=== PATIENT | male | born 1990 | race African-American/Black ===

== ENCOUNTER 2018-11-11 19:21 | Emergency (ER) | payer OTHER ==
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
[2018-11-11 19:45] VITALS: BP 129/74; PULSE 66; TEMP 98.4; BMI 24.4
--- NOTE | 2018-11-11 20:45 | PDOC ---
Attending Attestation - Resident Resident Name: Mauricio Lares - ED Attending Attestation I have performed the following: I have examined & evaluated the patient, The case was reviewed & discussed with the resident, I agree w/resident's findings & plan - HPI HPI: 11/11/18 21:53 Pt comes with rectal bleed noted prior to arrival; Pt saw blood on toilet paper when he wiped. He has no abd pain at this time. He saw no blood in the bowl and he has no blood on the stool itself. He has no hx of diarrhea or constipation. He has poor diet and he is a smoker. He was advised to eat more fruit and veggies. - Physicial Exam PE: 11/11/18 21:55 Agree with resident exam. Pt has no external hemorrhoids that are noted. Pt may have internal hemorrhoids. Good rectal tone. Pt has no abd pain. HR normal Stool for guaiac is brown; no red tinge. Rest of exam normal. - Medical Decision Making 11/11/18 21:56 Occult blood test for stool shows no bleeding. Pt has normal Hb/HCT Pt will follow with his PMD or with GI as needed. No further testing at this time.
--- NOTE | 2018-11-11 21:24 | PDOC ---
History of Present Illness - General Chief Complaint: Rectal Bleed Stated Complaint: RECTAL BLEEDING Time Seen by Provider: 11/11/18 19:32 - History of Present Illness Initial Comments: 11/11/18 21:51 The patient is a 28 year old male with no significant PMH who presents for evaluation of rectal bleeding. The patient reports noting bright red blood with wiping today prompting his presentation to the ED for further evaluation. he denies similar symptoms in the past and otherwise denies fevers, chills, SOB , chest pain, nausea, vomiting, abdominal pain, or changes with urination or bowel movements. Past History - Past Medical History Allergies/Adverse Reactions: Allergies Allergy/AdvReac Type Severity Reaction Status Date / Time No Known Allergies Allergy Verified 11/11/18 19:37 COPD: No - Suicide/Smoking/Psychosocial Hx Smoking Status: No Smoking History: Current every day smoker Have you smoked in the past 12 months: Yes Number of Cigarettes Smoked Daily: 10 Information on smoking cessation initiated: No Hx Alcohol Use: Yes Drug/Substance Use Hx: Yes Review of Systems - Review of Systems Comments:: 11/11/18 21:53 Constitutional: No fevers, chills, fatigue, malaise HEENT: No Rhinorrhea, nasal congestion, visual changes Cardiovascular: No chest pain, syncope, palpitations, lightheadedness Respiratory: No Cough, SOB, Hemoptysis, Gastrointestinal: BRBPR. No Abdominal pain, Nausea, Vomiting, Constipation, Diarrhea, Melena Genitourinary: No Dysuria, Frequency, Urgency, Hesitancy, Hematuria, Flank pain Musculoskeletal: No Myalgia, arthralgia Skin: No rashes, itching, bruising, pallor Neurologic: No Headache, Dizziness, Numbness, Weakness, or Tingling Psychiatric: No Hallucinations. No SI or HI *Physical Exam - Vital Signs Last Vital Signs Temp Pulse Resp BP Pulse Ox 98.4 F 66 18 129/74 100 11/11/18 19:34 11/11/18 19:34 11/11/18 19:34 11/11/18 19:34 11/11/18 19:34 - Physical Exam Comments: 11/11/18 21:53 General Appearance: Nourished. No Apparent Distress HEENT: EOMI, EMILY. No Pharyngeal Erythema, Tonsillar Exudate, Tonsillar Erythema Neck: No Cervical Lymphadenopathy Respiratory/Chest: Lungs Clear, Normal Breath Sounds. No Crackles, Rales, Rhonchi, Wheezing Cardiovascular: Regular Rhythm, Regular Rate. No Murmur, Gallops, Rubs Gastrointestinal/Abdominal: Normal Bowel Sounds, Soft. No Guarding, Rebound, Tenderness Rectal Exam: Normal External exam. Musculoskeletal: No CVA Tenderness Extremity: Normal Capillary Refill Integumentary: Normal Color, Dry, Warm Neurologic: Fully Oriented, Alert, Normal Mood/Affect, Normal Response, ED Treatment Course - LABORATORY CBC & Chemistry Diagram: 11/11/18 21:20 11/11/18 21:20 Medical Decision Making - Medical Decision Making 11/11/18 21:54 The patient is a 28 year old male with no significant PMH who presents for evaluation of rectal bleeding. Given the patient's history and physical exam, it is likely the patient's symptoms are due to an internal hemorrhoid. However , we obtained a cbc, cmp, stool occult blood which were unremarkable. We are comfortable discharging the patient home in stable condition. Patient and family made aware of impression and plan, return precautions discussed including but not limited to worsening pain or symptoms, fevers, or signs of infection, chest pain, respiratory distress, inability to tolerate oral intake, dehydration, syncope, or neurologic changes. The patient is to follow up with PMD and specialist as recommended within 1 week, follow up information provided and the patient will call for an appointment. The patient is to take medications as instructed for duration of time and continue with supportive care , avoid triggers and precipitants. Patient is safe for outpatient follow-up. *DC/Admit/Observation/Transfer Diagnosis at time of Disposition: Rectal bleeding - Discharge Dispostion Disposition: HOME Condition at time of disposition: Stable Decision to Admit order: No - Referrals Referrals: Valentin Coley MD [Staff Physician] - - Patient Instructions Printed Discharge Instructions: DI for Rectal Bleeding Additional Instructions: 1) Please follow-up with your primary care doctor in the next 2-3 days. Please call tomorrow to schedule a follow up appointment. If you cannot follow up with your doctor within 1 week please return to the Emergency Department for any urgent issues. 2) If you have any worsening of symptoms or any other concerns, please return to the ER immediately. Return if worsening symptoms including fevers, headache, vomiting, visual or hearing disturbances, abdominal pain, chest pain, shortness of breath, syncope, dehydration, inability to take things by mouth/vomiting, altered mental status, or worsening concerning symptoms. 3) Please continue taking your home medications as directed. Side effects may include upset stomach, abdominal pain, vomiting, or diarrhea. Do not drink alcohol with your medications. - Post Discharge Activity
[2018-11-11 21:34] LABS: BASO % 0.7 % (0-2.0); EOS % 0.4 % (0-4.5); HEMATOCRIT 43.3 % (35.4-49); HEMOGLOBIN 13.5 GM/dL (11.7-16.9); LYMPH % 21.1 % (8-40); MCH 24.1 pg (25.7-33.7); MCHC 31.2 g/dl (32.0-35.9); MEAN CELL VOLUME 77.1 fl (80-96); MONO % 6.4 % (3.8-10.2); NEUT % 71.4 % (42.8-82.8); PLATELET COUNT 229 K/MM3 (134-434); RBC 5.62 M/mm3 (4.00-5.60); RDW 13.6 % (11.9-15.9); WHITE BLOOD COUNT 9.3 K/mm3 (4.0-10.0)
[2018-11-11 22:05] LABS: ALBUMIN 3.5 g/dl (3.4-5.0); BILIRUBIN,TOTAL 0.7 mg/dL (0.2-1); BLOOD UREA NITROGEN 10.4 mg/dL (7-18); CALCIUM 9.4 mg/dL (8.5-10.1); CREATININE 1.2 mg/dL (0.55-1.3); POTASSIUM 3.8 mmol/L (3.5-5.1); TOT PROT 6.9 g/dl (6.4-8.2)
== END 2018-11-11 22:00 | disposition home or self-care (01) ==
LOC: JER 19:21 → JERFT 19:21 → JER 22:00
DX: K62.5 Hemorrhage of anus and rectum (principal); F17.210 Nicotine dependence, cigarettes, uncomplicated
CPT/HCPCS: 36415; 80053; 82272; 85025; 99282-25

== ENCOUNTER 2020-04-12 14:19 | Emergency (ER) | payer OTHER ==
[2020-04-12 14:25] VITALS: BP 133/79; PULSE 72; TEMP 97.9; BMI 23.7
[2020-04-12] MEDS ORDERED: SODIUM CHLORIDE 0.9% 500 ML INFUS.BAG IV ONE (14:50)
[2020-04-12] MEDS ORDERED: AZITHROMYCIN 500 MG TABLET PO ONE (14:51)
[2020-04-12] MEDS ORDERED: AZITHROMYCIN 250 MG TABLET ONE (15:09)
[2020-04-12 15:38] LABS: BASO % 0.2 % (0-2.0); EOS % 0.2 % (0-4.5); HEMATOCRIT 46.3 % (35.4-49); HEMOGLOBIN 14.7 GM/dL (11.7-16.9); LYMPH % 20.9 % (8-40); MCH 24.6 pg (25.7-33.7); MCHC 31.7 g/dl (32.0-35.9); MEAN CELL VOLUME 77.6 fl (80-96); MEAN PLT VOLUME 9.3 fl (7.5-11.1); MONO % 7.2 % (3.8-10.2); NEUT % 71.5 % (42.8-82.8); PLATELET COUNT 210 K/MM3 (134-434); RBC 5.96 M/mm3 (4.00-5.60); RDW 14.4 % (11.9-15.9); WHITE BLOOD COUNT 7.6 K/mm3 (4.0-10.0)
[2020-04-12 15:41] LABS: URINE APPEARANCE CLEAR; URINE BILIRUBIN NEGATIVE (NEGATIVE); URINE COLOR YELLOW; URINE GLUCOSE (UA) NEGATIVE (NEGATIVE); URINE KETONE NEGATIVE (NEGATIVE); URINE LEUK ESTERASE NEGATIVE (NEGATIVE); URINE NITRITE NEGATIVE (NEGATIVE); URINE PROTEIN NEGATIVE (NEGATIVE); URINE UROBILINOGEN 0.2 mg/dL (0.2-1.0)
[2020-04-12 15:53] LABS: POTASSIUM 4.2 mmol/L (3.5-5.1)
[2020-04-12 15:56] LABS: CALCIUM 9.4 mg/dL (8.5-10.1)
[2020-04-12 15:57] LABS: ALBUMIN 3.8 g/dl (3.4-5.0); BLOOD UREA NITROGEN 10.4 mg/dL (7-18)
[2020-04-12 16:00] LABS: CREATININE 1.1 mg/dL (0.55-1.3)
[2020-04-12 16:02] LABS: BILIRUBIN,TOTAL 1.7 mg/dL (0.2-1); TOT PROT 7.7 g/dl (6.4-8.2)
== END 2020-04-12 17:19 | disposition home or self-care (01) ==
LOC: JER 14:19
DX: R10.84 Generalized abdominal pain (principal)
CPT/HCPCS: 36415; 80053; 81003; 85025; 87086; 87491; 87591; 99284-25; C9803; U0003

== ENCOUNTER 2020-07-03 12:34 | Emergency (ER) | payer OTHER ==
[2020-07-03 12:54] VITALS: BP 127/81; PULSE 63; TEMP 98.3; BMI 24.4
[2020-07-03] MEDS ORDERED: DIPHTH,PERTUSS(ACELL),TET 0.5 ML DISP.SYRIN IM ONE ×2 (13:55→14:02)
== END 2020-07-03 15:05 | disposition home or self-care (01) ==
LOC: JERFT 12:34
PROC: 0HQCXZZ Repair Left Upper Arm Skin, External Approach (ICD-10-PCS; principal; 2020-07-03)
PROC: 3E0234Z Introduction of Serum, Toxoid and Vaccine into Muscle, Percutaneous Approach (ICD-10-PCS; 2020-07-03)
DX: S41.112A Laceration without foreign body of left upper arm, initial encounter (principal)
CPT/HCPCS: 90471; 90715; 99284-25

== ENCOUNTER 2020-10-02 10:01 | Emergency (ER) | payer OTHER ==
[2020-10-02 10:06] VITALS: BP 119/68; PULSE 63; TEMP 97.5; BMI 23.7
[2020-10-02 11:39] LABS: PH,URINE 5.5 (5.0-8.0); URINE APPEARANCE CLEAR; URINE BILIRUBIN NEGATIVE (NEGATIVE); URINE COLOR YELLOW; URINE GLUCOSE (UA) NEGATIVE (NEGATIVE); URINE KETONE NEGATIVE (NEGATIVE); URINE LEUK ESTERASE NEGATIVE (NEGATIVE); URINE NITRITE NEGATIVE (NEGATIVE); URINE PROTEIN NEGATIVE (NEGATIVE); URINE UROBILINOGEN 0.2 mg/dL (0.2-1.0)
[2020-10-02] MEDS ORDERED: IBUPROFEN 400 MG TABLET (FP) PO ONE ×2 (14:25→14:31)
[2020-10-02] MEDS ORDERED: DOXYCYCLINE HYCLATE 100 MG CAPSULE PO ONE ×2 (14:25→14:31)
== END 2020-10-02 14:40 | disposition home or self-care (01) ==
LOC: JERFT 10:01 → JER 10:01 → JERFT 14:40
DX: N43.3 Hydrocele, unspecified (principal); N50.82 Scrotal pain
CPT/HCPCS: 36415; 76870-TC; 81003; 87086; 87491; 87591; 99284-25

== ENCOUNTER 2020-11-18 02:43 | Emergency (ER) | payer OTHER ==
[2020-11-18 03:12] VITALS: BMI 25.1
[2020-11-18 04:38] LABS: BASO % 0.8 % (0-2.0); EOS % 0.2 % (0-4.5); HEMATOCRIT 47.3 % (35.4-49); HEMOGLOBIN 15.2 GM/dL (11.7-16.9); LYMPH % 19.2 % (8-40); MCH 24.2 pg (25.7-33.7); MCHC 32.1 g/dl (32.0-35.9); MEAN CELL VOLUME 75.5 fl (80-96); MEAN PLT VOLUME 8.7 fl (7.5-11.1); MONO % 7.9 % (3.8-10.2); NEUT % 71.9 % (42.8-82.8); PLATELET COUNT 242 10^3/uL (134-434); RBC 6.27 M/mm3 (4.00-5.60); RDW 14.9 % (11.9-15.9)
[2020-11-18 04:39] LABS: URINE APPEARANCE CLEAR; URINE BILIRUBIN NEGATIVE (NEGATIVE); URINE COLOR YELLOW; URINE GLUCOSE (UA) NEGATIVE (NEGATIVE); URINE KETONE TRACE (NEGATIVE); URINE LEUK ESTERASE NEGATIVE (NEGATIVE); URINE NITRITE NEGATIVE (NEGATIVE); URINE PROTEIN NEGATIVE (NEGATIVE)
[2020-11-18 04:59] LABS: CALCIUM 9.3 mg/dL (8.5-10.1)
[2020-11-18 05:00] LABS: ALBUMIN 3.9 g/dl (3.4-5.0); BLOOD UREA NITROGEN 11.8 mg/dL (7-18)
[2020-11-18 05:03] LABS: CREATININE 1.1 mg/dL (0.55-1.3)
[2020-11-18 05:04] LABS: BILIRUBIN,TOTAL 2.6 mg/dL (0.2-1); TOT PROT 7.9 g/dl (6.4-8.2)
[2020-11-18] MEDS ORDERED: DOXYCYCLINE HYCLATE 100 MG CAPSULE PO ONE ×2 (06:59→07:11)
[2020-11-18] MEDS ORDERED: cefTRIAXone SODIUM 1 GM VIAL ONE (07:11)
[2020-11-18 07:13] VITALS: BP 143/95; PULSE 52; TEMP 99.5
== END 2020-11-18 07:43 | disposition home or self-care (01) ==
LOC: JER 02:43
PROC: 3E023GC Introduction of Other Therapeutic Substance into Muscle, Percutaneous Approach (ICD-10-PCS; principal; 2020-11-18)
DX: R10.11 Right upper quadrant pain (principal); R10.31 Right lower quadrant pain
CPT/HCPCS: 36415; 74177-TC; 80053; 81003; 85025; 87086; 87491; 87591; 96372; 99285-25

== ENCOUNTER 2021-11-25 07:03 | Emergency (ER) | payer OTHER ==
[2021-11-25] MEDS ORDERED: ACETAMINOPHEN 500 MG TABLET (FP) PO ONE (07:27)
[2021-11-25 07:36] VITALS: BP 121/80; PULSE 59; RESP 17; TEMP 97.9; BMI 25.1
[2021-11-25] MEDS ORDERED: DOXYCYCLINE HYCLATE 100 MG CAPSULE PO ONE ×2 (07:46→07:50)
[2021-11-25] MEDS ORDERED: ACETAMINOPHEN 325 MG TABLET (FP) ONE (07:50)
[2021-11-25] MEDS ORDERED: LIDOCAINE HCL 1%, 10 MG/ML (50 mL VIAL) SQ ONE (07:59)
[2021-11-25] MEDS ORDERED: LIDOCAINE HCL 1%, 10 MG/ML (20ML VIAL) ONE (08:01)
== END 2021-11-25 08:20 | disposition home or self-care (01) ==
LOC: JER 07:03
PROC: 3E023GC Introduction of Other Therapeutic Substance into Muscle, Percutaneous Approach (ICD-10-PCS; principal; 2021-11-25)
DX: R05.1 Acute cough (principal); R09.81 Nasal congestion; Z20.2 Contact with and (suspected) exposure to infections with a predominantly sexual mode of transmission
CPT/HCPCS: 0241U-QW; 36415; 87491; 87591; 99284-25